=== PATIENT | male | born 2000 | race Caucasian/White ===

== ENCOUNTER 2018-04-27 22:22 | Emergency (ER) | END 2018-04-27 23:15 | disposition left against medical advice (07) ==

== ENCOUNTER 2018-08-18 15:36 | Emergency (ER) | payer SELFPAY | END 2018-08-18 16:22 | disposition left against medical advice (07) | LOC: E/R 15:36 | DX: Z53.21 Procedure and treatment not carried out due to patient leaving prior to being seen by health care provider (principal) ==